=== PATIENT | female | born 1995 | race Hispanic/Latino ===

== ENCOUNTER 2020-04-19 17:31 | Emergency (ER) | payer OTHER, SELFPAY ==
[2020-04-19 18:15] LABS: Bilirubin Negative (Negative); Blood, Urine 3+ (Negative); Clarity Extra Turbid (Clear); Glucose, Urine (Dipstick) Normal (Negative); Ketone, Urine Negative (Negative); Leukocyte 500 Leu/uL (Negative); Nitrite Negative (Negative); Protein, Urine (Dipstick) 100 mg/dL (Neg-Trace); RBC/HPF Greater than 50 HPF (0-3); Specific Gravity, Urine 1.021 (1.002-1.036); Urobilinogen Normal mg/dL (Less than 2); WBC/HPF Greater than 50 HPF (0-3); pH, Urine 5.5 (5.0-9.0)
[2020-04-19 18:22] LABS: Bacteria/HPF 1+ HPF (None Seen); Yeast-Budding 1+ HPF (None Seen)
[2020-04-19] MEDS ORDERED: Azithromycin 500 MG VIAL ONE (19:56)
[2020-04-19] MEDS ORDERED: Lidocaine 1% PF 5 ML VIAL ONE ×2 (19:56→19:58)
[2020-04-19] MEDS ORDERED: cefTRIAXone\\ROCEPHIN 250 MG VIAL ONE (19:56)
[2020-04-19] MEDS ORDERED: Azithromycin 250 MG TAB ONE (19:57)
[2020-04-21 17:54] LABS: Chlamydia by PCR Not Detected (NotDetected); GC by PCR Not Detected (NotDetected)
== END 2020-04-19 20:18 | disposition home or self-care (01) ==
LOC: ERS 17:31
DX: N72 Inflammatory disease of cervix uteri (principal); B37.49 Other urogenital candidiasis
CPT/HCPCS: 81003; 81015; 87480; 87491; 87510; 87591; 87660; 96372; 99283; J0456; J0696

== ENCOUNTER 2020-10-22 15:39 | Outpatient (CLI) | payer OTHER | END 2020-10-22 15:40 | disposition home or self-care (01) | LOC: BICULT 15:39 | PROVIDERS: ATTEND Family Medicine | DX: Z34.02 Encounter for supervision of normal first pregnancy, second trimester (principal); Z3A.20 20 weeks gestation of pregnancy | CPT/HCPCS: 76805 ==

== ENCOUNTER 2021-06-01 12:47 | Emergency (ER) | payer OTHER ==
[2021-06-01] MEDS ORDERED: Boostrix 0.5 ML (Tdap) VIAL ONE (13:28)
== END 2021-06-01 13:45 | disposition home or self-care (01) ==
LOC: ERS 12:47
DX: T24.202A Burn of second degree of unspecified site of left lower limb, except ankle and foot, initial encounter (principal); X19.XXXA Contact with other heat and hot substances, initial encounter; T31.0 Burns involving less than 10% of body surface
CPT/HCPCS: 90471; 90715